=== PATIENT | female | born 1960 | race Caucasian/White ===

== ENCOUNTER → 2022-08-09 13:59 | Outpatient (CLI) | payer BC, OTHER, SELFPAY ==
--- NOTE | 2022-08-09 | CA_ITS ---
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 No chest pain. Arrhythmias/Ectopy: None ST-T Changes: <1.5mm ST Segment depression - essentially normal test. Test Summary REST . . . . . . . Sitting REST . . . . . . . Standing REST 04:31 0.0 0.0 73 . 135/ 85 . . Stage 1 01:00 10.0 1.7 96 . . . . Stage 1 02:00 10.0 1.7 105 . . . . Stage 1 03:00 10.0 1.7 105 . 130/ 72 . . Stage 2 01:00 12.0 2.5 114 . . . . Stage 2 02:00 12.0 2.5 117 . 138/ 68 . . Stage 2 03:00 12.0 2.5 120 . 138/ 68 . . Stage 3 00:50 14.0 3.4 136 . . . Stop exercise at 06:50 RECOVERY 01:00 0.0 0.0 106 . 138/ 66 . . RECOVERY 02:00 0.0 0.0 98 . 151/ 73 . . RECOVERY 02:58 0.0 0.0 82 . 144/ 73 . . Electronically signed by : Adonis Neville MD 08/10/2022 08:34:21
== END ==
PROVIDERS: PCP Nurse Practitioner Family; Visit Provider Internal Medicine Cardiovascular Disease
DX: R07.89 Other chest pain (principal)
CPT/HCPCS: 93017

== ENCOUNTER → 2023-03-18 11:32 | Outpatient (CLI) | payer BC, OTHER, SELFPAY ==
[2023-03-19 10:38] LABS: Basophils % 0.6 % (0.1-2.0); Eosinophils # 0.1 K/mm3 (0.0-0.4); Eosinophils % 1.7 % (0.1-12.0); Hematocrit 41.4 % (37.0-47.0); Hemoglobin 13.5 g/dL (12.2-16.2); Lymphocytes # 2.2 K/mm3 (0.7-4.5); Lymphocytes % 38.3 % (10-50); Mean Corpuscular HGB Conc 32.6 g/dL (31.8-35.4); Mean Corpuscular Hemoglobin 33.1 pg (27.0-31.2); Mean Corpuscular Volume 101.5 fl (81-99); Mean Platelet Volume 10.7 fl (7.4-10.4); Monocytes # 0.4 K/mm3 (0.1-1.0); Monocytes % 7.7 % (1.7-9.3); Neutrophils % 51.7 % (37.0-80.0); Platelet Count 215 K/mm3 (142-424); Red Blood Count 4.08 M/mm3 (4.20-5.40); Red Cell Distribution Width 12.7 % (11.5-17.5); White Blood Count 5.8 K/mm3 (4.8-10.8)
[2023-03-19 10:43] LABS: Alanine Aminotransferase 28 U/L (12-78); Albumin Level 4.3 g/dl (3.5-5.0); Albumin/Globulin Ratio 1.5 (1.1-1.8); Alkaline Phosphatase 87 U/L (38-126); Anion Gap 12.1 mEq/L (5-15); Aspartate Amino Transferase 33 U/L (14-36); Bilirubin,Total 0.4 mg/dl (0.2-1.3); Blood Urea Nitrogen 21 mg/dl (7-17); Calcium 9.1 mg/dl (8.4-10.2); Carbon Dioxide 26 mmol/L (22.0-30.0); Chloride 106 mmol/L (98-107); Cholesterol 265 mg/dl (140-200); Estimated Glomerular Filt Rate 56 ml/min (>60); GFR (African American) 68 ML/MIN (>60); Globulin 2.8 g/dL (1.3-3.2); Glucose 85 mg/dl (74-100); HDL Cholesterol 33 mg/dl (40-60); Potassium 4.1 mmoL/L (3.5-5.1); Sodium 140 mmol/L (136-145); Total Protein,Serum 7.1 g/dl (6.3-8.2); Triglycerides 250 mg/dl (30-150); VLDL Cholesterol 50 mg/dL (0-40)
[2023-03-19 10:54] LABS: Direct LDL Cholesterol 156.95 mg/dL (100-129)
[2023-03-19 11:13] LABS: Thyroid Stimulating Hormone 1.96 uIU/mL (0.465-4.68)
== END ==
PROVIDERS: PCP Student in an Organized Health Care Education/Training Program; Visit Provider Student in an Organized Health Care Education/Training Program
DX: Z00.00 Encounter for general adult medical examination without abnormal findings (principal); Z68.27 Body mass index [BMI] 27.0-27.9, adult
CPT/HCPCS: 80053; 80061; 82306; 84443; 85025

== ENCOUNTER → 2023-04-04 08:32 | Outpatient (CLI) | payer BC, OTHER, SELFPAY ==
[2023-04-04 18:09] LABS: Basophils % 0.5 % (0.1-2.0); Eosinophils # 0.1 K/mm3 (0.0-0.4); Eosinophils % 1.9 % (0.1-12.0); Hematocrit 42.1 % (37.0-47.0); Hemoglobin 13.9 g/dL (12.2-16.2); Lymphocytes # 2.3 K/mm3 (0.7-4.5); Lymphocytes % 38.2 % (10-50); Mean Corpuscular HGB Conc 33.1 g/dL (31.8-35.4); Mean Corpuscular Hemoglobin 32.7 pg (27.0-31.2); Mean Corpuscular Volume 98.8 fl (81-99); Mean Platelet Volume 9.6 fl (7.4-10.4); Monocytes # 0.4 K/mm3 (0.1-1.0); Neutrophils # 3.1 K/mm3 (1.8-7.8); Neutrophils % 52.4 % (37.0-80.0); Platelet Count 223 K/mm3 (142-424); Red Blood Count 4.26 M/mm3 (4.20-5.40); Red Cell Distribution Width 12.6 % (11.5-17.5); White Blood Count 5.9 K/mm3 (4.8-10.8)
[2023-04-04 18:38] LABS: Alanine Aminotransferase 28 U/L (12-78); Albumin Level 4.5 g/dl (3.5-5.0); Albumin/Globulin Ratio 1.6 (1.1-1.8); Alkaline Phosphatase 72 U/L (38-126); Anion Gap 10.6 mEq/L (5-15); Aspartate Amino Transferase 34 U/L (14-36); Bilirubin,Total 0.5 mg/dl (0.2-1.3); Blood Urea Nitrogen 22 mg/dl (7-17); Calcium 9.5 mg/dl (8.4-10.2); Carbon Dioxide 25 mmol/L (22.0-30.0); Chloride 106 mmol/L (98-107); Estimated Glomerular Filt Rate 50 ml/min (>60); GFR (African American) 61 ML/MIN (>60); Globulin 2.9 g/dL (1.3-3.2); Glucose 91 mg/dl (74-100); Potassium 4.6 mmoL/L (3.5-5.1); Sodium 137 mmol/L (136-145); Total Protein,Serum 7.4 g/dl (6.3-8.2)
== END ==
LOC: LAB.DROPOF 04-05 08:33
PROVIDERS: PCP Student in an Organized Health Care Education/Training Program; Visit Provider Student in an Organized Health Care Education/Training Program
DX: D64.9 Anemia, unspecified (principal); R79.9 Abnormal finding of blood chemistry, unspecified
CPT/HCPCS: 80053; 85025

== ENCOUNTER 2023-05-12 13:03 | Outpatient (CLI) | payer BC, OTHER, SELFPAY ==
--- NOTE | 2023-05-12 13:18 | US_ITS ---
FINAL REPORT TECHNIQUE: Ultrasound images of the kidneys and bladder were obtained. CLINICAL HISTORY: . FINDINGS: The right kidney measures 9.4 cm in length. It is normal in echogenicity. There is mild hydronephrosis. The left kidney measures 9.5 cm in length. It is normal in echogenicity. There is no hydronephrosis. The spleen is unremarkable. IMPRESSION: Mild right hydronephrosis. Reviewed, Interpreted and Dictated by Trever Hamlin III, MD Transcribed by Erin Jenkins Authenticated and . [facility]
[2023-05-12 14:09] LABS: Microscopic, Urine URINE MICROSCOPIC (MICROSCOPIC)
[2023-05-12 15:26] LABS: Appearance,Urine CLEAR (Clear); Bilirubin,Urine Negative (Negative); Blood, Urine Negative (Negative); Color,Urine YELLOW (Yellow); Glucose,Urine (UA) Negative (Negative); Ketones,Urine Negative (Negative); Leukocyte Esterase,Urine Negative (Negative); Nitrate,Urine Negative (Negative); PH,Urine 6.5 (5.0-8.5); Protein,Urine Negative (Negative); Specific Gravity, Urine <= 1.005 (1.005-1.030); Urobilinogen,Urine 0.2 EU/dl (0.2)
[2023-05-12 15:52] LABS: Squamous Epithelial Cell,Urine Occasional #/hpf (0-5)
== END 2023-05-12 23:59 ==
LOC: RAD 13:05
PROVIDERS: PCP Student in an Organized Health Care Education/Training Program; Visit Provider Student in an Organized Health Care Education/Training Program
DX: R79.89 Other specified abnormal findings of blood chemistry (principal); R94.4 Abnormal results of kidney function studies
CPT/HCPCS: 76770; 81001

== ENCOUNTER 2023-11-04 17:14 | Outpatient (CLI) | payer BC, OTHER, SELFPAY ==
--- NOTE | 2023-11-04 17:20 | XR_ITS ---
PROCEDURE INFORMATION: Exam: XR Right Knee Exam date and time: 11/04/2023 5:22 PM Age: 63 years old Clinical indication: Pain; Knee; Right; Additional info: R knee pain, twisted a couple weeks ago, pain not subsiding TECHNIQUE: Imaging protocol: Radiologic exam of the right knee. Views: 3 views. COMPARISON: No relevant prior studies available. FINDINGS: Bones/joints: There is tricompartmental osteoarthritis of the knee with loss of joint space, subchondral sclerosis, and productive changes. The osseous structures are intact, with no signs of acute fracture, dislocation, or malalignment. There is no evidence of abnormal bone density or destructive lesions. Soft tissues: The soft tissues appear within normal limits. IMPRESSION: At the time of imaging, the study shows no acute osseous abnormalities but does reveal signs of tricompartmental osteoarthritis.
== END 2023-11-04 23:59 | disposition home or self-care (01) ==
LOC: RAD 17:15
PROVIDERS: PCP Student in an Organized Health Care Education/Training Program; Visit Provider Student in an Organized Health Care Education/Training Program
DX: M25.561 Pain in right knee (principal)
CPT/HCPCS: 73562

== ENCOUNTER 2023-11-28 11:42 | Outpatient (CLI) | payer BC, OTHER, SELFPAY ==
[2023-11-28 17:59] LABS: Basophils % 0.8 % (0.1-2.0); Eosinophils # 0.1 K/mm3 (0.0-0.4); Eosinophils % 2.4 % (0.1-12.0); Hematocrit 40.2 % (37.0-47.0); Hemoglobin 13.4 g/dL (12.2-16.2); Lymphocytes # 2.1 K/mm3 (0.7-4.5); Lymphocytes % 37.6 % (10-50); Mean Corpuscular HGB Conc 33.2 g/dL (31.8-35.4); Mean Corpuscular Hemoglobin 32.9 pg (27.0-31.2); Mean Corpuscular Volume 99.1 fl (81-99); Mean Platelet Volume 9.6 fl (7.4-10.4); Monocytes # 0.4 K/mm3 (0.1-1.0); Monocytes % 6.7 % (1.7-9.3); Neutrophils # 2.9 K/mm3 (1.8-7.8); Neutrophils % 52.5 % (37.0-80.0); Platelet Count 239 K/mm3 (142-424); Red Blood Count 4.05 M/mm3 (4.20-5.40); White Blood Count 5.6 K/mm3 (4.8-10.8)
[2023-11-28 18:09] LABS: Chol/HDL Ratio 8.5 (1-3.5); Cholesterol 289 mg/dl (140-200); HDL Cholesterol 34 mg/dl (40-60); Triglycerides 300 mg/dl (30-150); Uric Acid 6.8 mg/dl (2.5-6.2); VLDL Cholesterol 60 mg/dL (0-40)
[2023-11-28 18:20] LABS: Direct LDL Cholesterol 172.08 mg/dL (100-129)
[2023-11-28 18:29] LABS: Erythrocyte Sedimentation Rate 17 mm/hr (0-30)
[2023-11-30 07:11] LABS: RA Latex Turbid. <10.0 IU/mL (<14.0)
[2023-12-01 14:11] LABS: Anti-Centromere B Antibodies <0.2 AI (0.0-0.9); Anti-DNA (DS) Ab Qn <1 IU/mL (0-9); Anti-Jo-1 <0.2 AI (0.0-0.9); Anti-Smith Antibody <0.2 AI (0.0-0.9); Antichromatin Antibodies <0.2 AI (0.0-0.9); Antiscleroderma-70 Antibodies <0.2 AI (0.0-0.9); RNP Antibodies 0.2 AI (0.0-0.9); Sjogren's Anti-SS-A <0.2 AI (0.0-0.9); Sjogren's Anti-SS-B <0.2 AI (0.0-0.9)
[2023-12-17 15:09] LABS: Antinuclear Antibodies, IFA POSITIVE
== END 2023-11-28 23:59 | disposition home or self-care (01) ==
LOC: LAB.DROPOF 12-01 11:43
PROVIDERS: PCP Student in an Organized Health Care Education/Training Program; Visit Provider Student in an Organized Health Care Education/Training Program
DX: E78.5 Hyperlipidemia, unspecified (principal); R79.82 Elevated C-reactive protein (CRP)
CPT/HCPCS: 80061; 84550; 85025; 85651; 86038; 86225; 86235; 86431

== ENCOUNTER 2023-12-18 08:00 | Outpatient (RCR) | payer BC, OTHER, SELFPAY | END 2023-12-18 08:05 | disposition home or self-care (01) | LOC: PT 08:00 | PROVIDERS: Visit Provider Student in an Organized Health Care Education/Training Program | DX: M25.561 Pain in right knee (principal) | CPT/HCPCS: 97035; 97110; 97163 ==

== ENCOUNTER 2024-04-06 12:06 | Outpatient (CLI) | payer BC, OTHER, SELFPAY ==
[2024-04-06 19:51] LABS: Albumin Level 4.5 g/dl (3.5-5.0); Chloride 108 mmol/L (98-107); Sodium 137 mmol/L (136-145)
[2024-04-06 19:52] LABS: Potassium 3.8 mmoL/L (3.5-5.1)
[2024-04-06 19:54] LABS: Alanine Aminotransferase 27 U/L (12-78); Alkaline Phosphatase 70 U/L (38-126); Anion Gap 6.8 mEq/L (5-15); Aspartate Amino Transferase 34 U/L (14-36); Bilirubin,Total 0.4 mg/dl (0.2-1.3); Blood Urea Nitrogen 20 mg/dl (7-17); Carbon Dioxide 26 mmol/L (22.0-30.0); Cholesterol 247 mg/dl (140-200); Estimated Glomerular Filt Rate 56 ml/min (>60); GFR (African American) 67 ML/MIN (>60); Globulin 2.3 g/dL (1.3-3.2); Iron 107 ug/dL (37-170); Total Protein,Serum 6.8 g/dl (6.3-8.2); Triglycerides 369 mg/dl (30-150); VLDL Cholesterol 74 mg/dL (0-40)
[2024-04-06 19:55] LABS: Calcium 9.7 mg/dl (8.4-10.2); Chol/HDL Ratio 7.1 (1-3.5); Glucose 92 mg/dl (74-100); HDL Cholesterol 35 mg/dl (40-60)
[2024-04-06 20:06] LABS: Direct LDL Cholesterol 128.97 mg/dL (100-129); Total Iron Binding Capacity 312 ug/dL (265-497)
[2024-04-06 20:30] LABS: Ferritin 106 ng/ml (11.1-264)
[2024-04-06 20:34] LABS: HIV (1&2) Antibody Rapid NONREACTIVE (NONREACTIVE)
[2024-04-06 21:10] LABS: Vitamin B12 995 pg/mL (239-931)
[2024-04-06 21:13] LABS: Folate > 20.00 ng/mL
[2024-04-08 08:17] LABS: HCV Ab Non Reactive (Non Reactive)
== END 2024-04-06 23:59 | disposition home or self-care (01) ==
LOC: LAB.DROPOF 04-07 10:59
PROVIDERS: PCP Student in an Organized Health Care Education/Training Program; Visit Provider Student in an Organized Health Care Education/Training Program
DX: L65.9 Nonscarring hair loss, unspecified (principal); E78.2 Mixed hyperlipidemia; R73.03 Prediabetes
CPT/HCPCS: 80053; 80061; 82607; 82728; 82746; 83540; 83550; 86803; 87389